=== PATIENT | female | born 1995 ===

== ENCOUNTER 2017-02-12 21:05 | Emergency (ER) | payer OTHER ==
[~2017-02-12] VITALS: Ht 157.5 cm; Wt 58.4 kg
[2017-02-12 21:20] VITALS: TEMP 36.8; Ht 157.5 cm; Wt 58.4 kg
[2017-02-12] MEDS ORDERED: XYLOCAINE 1%/SOD BICARB 20 ML VIAL INFIL ONE (21:30)
[2017-02-12] MEDS ORDERED: BCPILLS PO (22:37)
--- NOTE | 2017-02-12 22:47 | EMERGENCY ROOM VISIT NOTE ---
ED Visit Note First contact with patient: 21:29 CHIEF COMPLAINT: Right leg laceration HISTORY OF PRESENT ILLNESS: This 21-year-old female patient presents to the emergency department immediately after cutting the right leg on the corner of her bed. The bleeding has stopped. Denies weakness or numbness of the foot. The patient rates the pain as minimal and 2/10. The patient denies any other injuries. The patient's Tetanus shot is up to date. REVIEW OF SYSTEMS: A 6 system review of systems was completed with positives and pertinent negatives listed in the HPI. ALLERGIES: Sulfa MEDICATIONS: control PMH: Otherwise healthy SOCIAL HISTORY: She does not smoke. Occasional alcohol use. She is a [employer] student. PHYSICAL EXAM: Vital Signs: Reviewed Nurse's notes, vital signs stable. GENERAL : 21-year-old female, in no acute distress, well-developed, well-nourished. SKIN: There is a 10 cm long laceration on the anterior aspect of the right scruggs. The edges gape apart with traction. There is no foreign material in the wound and it looks clean. There is no active bleeding. No deep structures such as tendons, bones, or significant blood vessels are seen in the base of the wound. Normal strength and movement of the right foot. Capillary refill less than 2 seconds. Normal sensation to light and sharp touch. EMERGENCY DEPARTMENT COURSE: I examined the patient. Verbal consent was obtained to perform the procedure. Using sterile technique the wound was cleansed with Betadine. The area was sterilely draped. 8 ml of 1% buffered lidocaine was used to anesthetize the laceration on the leg. Once the patient was anesthetized, the wound was copiously irrigated under pressure with sterile saline. The wound was explored and was as described above. The laceration was repaired using 15 simple interrupted 4-0 nylon sutures with the wound edges being well approximated. The patient tolerated the procedure well. Hemostasis was achieved. The area was cleaned with sterile saline and dressed with bacitracin ointment and bandage. The patient was discharged home in good condition. DIAGNOSIS: Right leg laceration DISCHARGE INSTRUCTIONS & TREATMENT: Keep wound clean. It is okay to gently wash the area with soapy water. Do not submerse it in water for long periods of time such as swimming, going in hot tubs or taking baths until the sutures come out. Do not allow any crusting or dried blood to accumulate on sutures. If this occurs, use a 1:1 solution of hydrogen peroxide/water on a Q-tip to clean the wound. Use an antibiotic ointment for 3-4 days, then let wound dry. Suture removal in 14 days. Return sooner for any signs of infection (increasing redness, swelling, drainage). Ice and elevate for swelling and pain. Ibuprofen 600 mg and Tylenol 1000 mg every 6 hrs for pain.
[2017-02-12 22:57] VITALS: BP 129/67; PULSE 95; O2SAT 97
== END 2017-02-12 22:58 | disposition home or self-care (01) ==
LOC: C.EDB 21:08 → C.EDD 22:58
DX: S81.811A Laceration without foreign body, right lower leg, initial encounter (principal); W22.8XXA Striking against or struck by other objects, initial encounter; Y92.003 Bedroom of unspecified non-institutional (private) residence as the place of occurrence of the external cause